=== PATIENT | male | born 1950 | race Caucasian/White ===

== ENCOUNTER 2017-08-15 08:52 | Day surgery (SDC) | payer MEDICARE, BC ==
[2017-08-15] MEDS ORDERED: Sodium Chloride 0.9% 10 ML Syringe FLUSH PRN (09:00)
[2017-08-15] MEDS ORDERED: Lactated Ringers 1,000 ML IV SCH (09:00)
--- NOTE | 2017-08-15 10:41 | PCM.HPR ---
H & P Addendum review - H & P Addendum Review Date of Original H & P: 07/23/17 Date Reviewed: 08/15/17 Time Reviewed: 10:41 Patient was Examined: No Changes
[2017-08-15] MEDS ORDERED: fentaNYL 100 MCG/2 ML SDV ONE ×2 (10:48→10:57)
[2017-08-15] MEDS ORDERED: Midazolam 1 MG/ML 2 ML SDV ONE ×2 (10:48→10:57)
[2017-08-15] MEDS ORDERED: Propofol 200 MG/20 ML SDV ONE ×3 (10:49→10:57)
--- NOTE | 2017-08-15 11:23 | PCM.OPNOTE ---
- General Post-Op/Procedure Note Date of Surgery/Procedure: 08/15/17 Operative Procedure(s): Colonoscopy Findings: normal Pre Op Diagnosis: FH Colon Ca; Hx Colon Polyps Post-Op Diagnosis: Same Anesthesia Technique: MAC Primary Surgeon: Armin Mcdermott Anesthesia Provider: Erika Johnson Complications: None Condition: Good Free Text/Narrative:: Intake & Output 08/14/17 08/15/17 08/15/17 22:59 06:59 14:59 Intake Total 700 Balance 700
--- NOTE | 2017-08-15 14:19 | OR ---
Date of Procedure: 08/15/2017 PREOPERATIVE DIAGNOSES: 1. History of colon polyps. 2. Family history of colon cancer. POSTOPERATIVE DIAGNOSIS: Normal colonoscopy. PROCEDURE: Colonoscopy. ANESTHESIA: IV sedation. DESCRIPTION OF PROCEDURE: The patient was brought to the procedure room, where he was placed on his left side and IV sedation administered. Digital rectal exam was performed which was normal. Colonoscope was inserted and advanced to the level of the cecum with some difficulty getting into the cecum. With pressure on the abdomen, I was able to see almost the entire cecum, but could not see behind the ileocecal valve completely. The prep was good and surfaces were well visualized. Upon withdrawing the scope, the ascending, transverse, and descending colon were normal in appearance. Sigmoid colon and rectum were normal. Retroflexion was normal. Air was removed and the scope withdrawn. The patient tolerated the procedure well and returned to recovery in stable condition. Recommend colon screening again in 5 years. MARANDA AQUINO MD /[id number]
== END 2017-08-15 12:30 | disposition home or self-care (01) ==
LOC: LL.SDS 08:52
PROVIDERS: ATTEND Surgery
DX: Z12.11 Encounter for screening for malignant neoplasm of colon (principal); F17.210 Nicotine dependence, cigarettes, uncomplicated; E66.9 Obesity, unspecified; Z68.31 Body mass index [BMI] 31.0-31.9, adult; F33.40 Major depressive disorder, recurrent, in remission, unspecified; M1A.09X0 Idiopathic chronic gout, multiple sites, without tophus (tophi); Z79.82 Long term (current) use of aspirin; Z79.899 Other long term (current) drug therapy; Z86.010 Personal history of colon polyps; Z80.0 Family history of malignant neoplasm of digestive organs
CPT/HCPCS: G0105; J2250; J2704; J3010; J7120; 00811